=== PATIENT | female | born 1985 | race Caucasian/White ===

== ENCOUNTER 2017-01-08 07:32 | Emergency (ER) | payer MEDICAID, OTHER ==
[~2017-01-08] VITALS: Ht 165.1 cm; Wt 54.0 kg
[~2017-01-08 07:32] MED LIST: BUPR100CR PO; RANI150 PO
[2017-01-08 07:43] VITALS: BP 106/79; PULSE 83; RESP 18; TEMP 98.7; O2SAT 100
[2017-01-08] MEDS ORDERED: PRED10PA2 PO (08:08)
[2017-01-08] MEDS ORDERED: PROM6.256 PO (08:08)
[2017-01-08] MEDS ORDERED: VENTAER INH (08:08)
[2017-01-08] MEDS ORDERED: GUAI600T11 PO (08:08)
--- NOTE | 2017-01-08 08:08 | PD ---
HPI . Cough and cold Chief Complaint: Cold / Flu Symptoms Time Seen by Provider: 08:00 Travel History International Travel<30 days: No Contact w/Intl Traveler<30days: No Traveled to known affect area: No History of Present Illness HPI Patient presents with cough and cold symptoms for about 2 weeks. It started as a head cold and has now settled in her chest. She is also complaining with sore throat. She treated it with left over amoxicillin without relief. She states that she has also tried DayQuil and NyQuil. No fever. Cough is productive of green sputum. Patient denies any previous history of asthma, COPD or bronchitis. She does state that she smokes occasionally. PFSH Past Medical History Anxiety: Yes Depression: Yes Cancer: No Cardiovascular Problems: No Diminished Hearing: No Endocrine: No Genitourinary: No Immune Disorder: No Musculoskeletal: No Neurologic: No Psychiatric: Yes (ptsd.) Reproductive: No Respiratory: No Immunizations Current: No Influenza Vaccination: No ?: Not : 2 Para: 1 Miscarriage: 1 Social History Alcohol Use: Yes (COUPLE TIMES PER WEEK/ 3 drinks tonight ) Tobacco Use: Yes (1 ppd) Substance Use: No Allergies-Medications (Allergen,Severity, Reaction): Coded Allergies: No Known Allergies (Verified , 01/08/17) Reported Meds & Prescriptions Reported Meds & Active Scripts Active Reported Wellbutrin Sr (Bupropion HCl) 100 Mg Tab 100 Mg PO DAILY Zantac 150 Mg Tab (Ranitidine HCl) 150 Mg Tab 150 Mg PO BID Review of Systems Except as stated in HPI: all other systems reviewed are Neg General / Constitutional: No: Fever, Chills HENT: Positive: Sore Throat Respiratory: Positive: Cough Physical Exam Narrative GENERAL: Healthy-appearing young man in no acute distress. SKIN: Warm and dry. HEAD: Atraumatic. Normocephalic. EYES: Pupils equal and round. ENT: No nasal bleeding or discharge. Mucous membranes pink and moist. Nasal mucous membranes have no edema. Oropharynx has postnasal drip. NECK: Trachea midline. Neck is supple with no cervical lymphadenopathy. CARDIOVASCULAR: Regular rate and rhythm. Heart sounds are normal. RESPIRATORY: No accessory muscle use. Lungs are clear but she does have an asthmatic sounding cough. GASTROINTESTINAL: Abdomen soft, non-tender, nondistended. MUSCULOSKELETAL: No obvious deformities. No edema. NEUROLOGICAL: Awake and alert. No obvious cranial nerve deficits. Motor grossly within normal limits. Normal speech. PSYCHIATRIC: Appropriate mood and affect; insight and judgment normal. Data Data Last Documented VS Vital Signs Date Time Temp Pulse Resp B/P Pulse Ox O2 Delivery O2 Flow Rate FiO2 01/08/17 07:43 98.7 83 18 106/79 100 Room Air MDM Medical Decision Making Medical Screen Exam Complete: Yes Emergency Medical Condition: Yes Differential Diagnosis Differential diagnosis includes but is not limited to viral respiratory illness , bronchitis, pneumonia, allergies, CHF, asthma/COPD. Narrative Course Patient presents with persistent cough following upper respiratory infection. Her cough sounds like bronchitis. Diagnosis Primary Impression: Bronchitis Patient Instructions: Acute Bronchitis (DC), General Instructions Med/Other Pt SpecificInfo: Prescription(s) given Scripts Albuterol 18 GM Inh (Ventolin Hfa 18 GM Inh)90 Mcg/Act Aer2 Puff INH Q4-6H PRN ( SHORTNESS OF BREATH) #1 INHALER Ref 0 Prov:Maribell Scott MD 01/08/17 Promethazine-Codeine Liq 6.25-10 Mg/5 Ml Syrp10 Ml PO Q6H PRN (cough) #180 ML Ref 0 Prov:Maribell Scott MD 01/08/17 Guaifenesin ER (Mucus Relief ER)600 Mg Tab1,200 Mg PO BID PRN (CHEST CONGESTION AND/OR COUGH) #30 TAB Ref 0 Prov:Maribell Scott MD 01/08/17 Prednisone (48) 10 mg tab Dose Pack 10 Mg Dspk10 Mg PO DIRECTED #1 DSPK Ref 0 Prov:Maribell Scott MD 01/08/17 Disposition: 01 DISCHARGE HOME Condition: Stable Maribell Scott MD Jan 08, 2017 08:08
== END 2017-01-08 08:15 | disposition home or self-care (01) ==
LOC: PHEFT 07:32
DX: J40 Bronchitis, not specified as acute or chronic (principal); R07.0 Pain in throat; F17.200 Nicotine dependence, unspecified, uncomplicated; Z86.59 Personal history of other mental and behavioral disorders
CPT/HCPCS: 99283

== ENCOUNTER 2017-12-11 08:57 | Emergency (ER) | payer MEDICAID, OTHER ==
[~2017-12-11] VITALS: Ht 167.6 cm; Wt 63.0 kg
[~2017-12-11 08:57] MED LIST changes: -BUPR100CR PO; +GUAI600T11 PO; +PRED10PA2 PO; +PROM6.256 PO; -RANI150 PO; +VENTAER INH
[2017-12-11 09:03] VITALS: BP 122/75; PULSE 76; RESP 16; TEMP 98; O2SAT 100
--- NOTE | 2017-12-11 09:34 | PD ---
HPI Chief Complaint: Cold / Flu Symptoms Time Seen by Provider: 09:25 Travel History International Travel<30 days: No Contact w/Intl Traveler<30days: No Traveled to known affect area: No History of Present Illness HPI 32-year-old female presents to the ED for evaluation of 5 day history of sore throat, clear rhinorrhea, nonproductive cough, body aches, headaches. Symptoms onset gradually. She has not measured a fever at home but endorses chills. She is an occasional smoker. The patient works in a hospital. She denies nausea, vomiting, history of seasonal allergies. She received this years flu shot. She's been treating at home with DayQuil with no improvement of symptoms. PFSH Past Medical History Hx Anticoagulant Therapy: No Anxiety: Yes Depression: Yes Cancer: No Cardiovascular Problems: No Diminished Hearing: No Endocrine: No Genitourinary: No Immune Disorder: No Musculoskeletal: No Neurologic: No Psychiatric: Yes (ptsd.) Reproductive: No Respiratory: No Immunizations Current: No Influenza Vaccination: No ?: Not : 2 Para: 1 Miscarriage: 1 Past Surgical History Other Surgery: Yes (BREAST AUGMENTATION) Social History Alcohol Use: Yes (COUPLE TIMES PER WEEK/ 3 drinks tonight ) Tobacco Use: Yes (1 ppd) Substance Use: No Allergies-Medications (Allergen,Severity, Reaction): Coded Allergies: No Known Allergies (Verified Adverse Reaction, Unknown, 12/11/17) Reported Meds & Prescriptions Reported Meds & Active Scripts Active Tessalon Perles (Benzonatate) 100 Mg Cap 200 Mg PO TID PRN Rachel-D 24 Hour Allergy (Fexofenadine-Pseudoephedrine ER 24 HR) 180-240 Rosa Elena 1 Tab PO DAILY Fluticasone Nasal [place] 50 Mcg/Act Naspr 100 Mcg EACH NARE BID 14 Days 50 mcg/spray Review of Systems Except as stated in HPI: all other systems reviewed are Neg Physical Exam Narrative GENERAL: Well-nourished, well-developed nontoxic-appearing white female in no acute distress. SKIN: Warm and dry. HEAD: Normocephalic. Atraumatic. EYES: No scleral icterus. No injection or drainage. PERRLA. EOMI. ENT: Pearly griffin tympanic membranes bilaterally. Nasal mucosa is moist. Oropharynx with mild posterior erythema. Mild cobblestoning. No edema or exudate. NECK: Supple, trachea midline. No JVD or lymphadenopathy. CARDIOVASCULAR: Regular rate and rhythm without murmurs, gallops, or rubs. RESPIRATORY: Breath sounds clear and equal bilaterally. No accessory muscle use. GASTROINTESTINAL: Abdomen soft, non-tender, nondistended. + Bowel sounds MUSCULOSKELETAL: No cyanosis, or edema. BACK: Nontender without obvious deformity. No CVA tenderness. Data Data Last Documented VS Vital Signs Date Time Temp Pulse Resp B/P (MAP) Pulse Ox O2 Delivery O2 Flow Rate FiO2 12/11/17 09:11 18 100 Room Air 12/11/17 09:03 98.0 76 122/75 (91) Orders Orders Ed Discharge Order (12/11/17 09:36) MDM Medical Decision Making Medical Screen Exam Complete: Yes Emergency Medical Condition: Yes Differential Diagnosis Seasonal allergy versus upper airway cough syndrome versus viral syndrome versus other Narrative Course 32-year-old female presents to the ED for evaluation of 5 day history of sore throat, clear rhinorrhea, nonproductive cough, body aches, headaches. She is an occasional smoker. The patient works in a hospital. She denies nausea, vomiting, history of seasonal allergies. She received this years flu shot. Vitals reviewed. Physical exam reveals a nontoxic-appearing white female in no acute distress. The nasal mucosa is boggy and there is mild posterior oropharyngeal cobblestoning and erythema. We'll treat for upper airway cough syndrome with intranasal steroids, antihistamine with decongestant and Tessalon Perles. Patient's provided a work note. She is instructed to rest, hydrate, take the medications as prescribed, follow with her primary care provider. She is stable and discharged home. Diagnosis Primary Impression: Upper airway cough syndrome Referrals: Primary Care Physician Patient Instructions: General Instructions, Postnasal Drip (DC) Departure Forms: Tests/Procedures, Work Release Enter return to work date: Dec 13, 2017 Special Instructions: No return to work until fever free for 24 hours Additional Instructions: Rest, hydrate. Push fluids such as sports drinks, Pedialyte, popsicles, clear broth. Flonase intranasally as prescribed. Rachel-D daily as prescribed. Tessalon every 8 hours as needed for cough. Continue with symptomatic treatment. Alternating Motrin and Tylenol every 4-6 hours as needed for continued fever. Increase handwashing frequently to avoid the spread of the virus to other family members and the community. Disinfect commonly touched surfaces such as light switches, microwaves, remote controls. Replace toothbrush at the end of this illness. Follow-up with the primary care provider this week. Return to the ED for any urgent or emergent medical condition. Med/Other Pt SpecificInfo: Prescription(s) given Scripts Benzonatate (Tessalon Perles) 100 Mg Cap 200 MG PO TID Y for COUGH, #21 CAP 0 Refills Prov: Morgan Page MD 12/11/17 Fexofenadine-Pseudoephedrine ER 24 HR (Rachel-D 24 Hour Allergy) 180-240 Rosa Elena 1 TAB PO DAILY for Allergy Management, #30 TAB 0 Refills Prov: Morgan Page MD 12/11/17 Fluticasone Nasal [place] (Fluticasone Nasal [place]) 50 Mcg/Act Naspr 100 MCG EACH NARE BID for Allergy Management for 14 Days, #1 BOTTLE 0 Refills 50 mcg/spray Prov: Morgan Page MD 12/11/17 Disposition: 01 DISCHARGE HOME Condition: Stable Kasey Fleming Dec 11, 2017 09:34
[2017-12-11] MEDS ORDERED: FLUT50SP EACH NARE (09:35)
[2017-12-11] MEDS ORDERED: FEXO1TAB97 PO (09:35)
[2017-12-11] MEDS ORDERED: BENZ100 PO (09:35)
== END 2017-12-11 09:47 | disposition home or self-care (01) ==
LOC: PHEFT 08:57
DX: R05 Cough (principal); F17.200 Nicotine dependence, unspecified, uncomplicated
CPT/HCPCS: 99284